=== PATIENT | female | born 1970 | race Caucasian/White ===

== ENCOUNTER 2017-11-05 12:58 | Outpatient (CLI) | payer OTHER | END 2017-11-05 12:59 | disposition home or self-care (01) | LOC: BICMAMMO 12:58 | PROVIDERS: ATTEND Obstetrics & Gynecology | DX: Z12.31 Encounter for screening mammogram for malignant neoplasm of breast (principal) | CPT/HCPCS: 77063; 77067 ==

== ENCOUNTER 2019-02-15 15:22 | Outpatient (CLI) | payer OTHER ==
--- NOTE | 2019-02-15 16:19 | MMO ---
Bilateral MAMMO Bilat Screen [facility]. CLINICAL HISTORY: Patient is 49 years old and is seen for screening. The patient has no family history of breast cancer. The patient has a history of left Excisional Biopsy in January, and right Excisional Biopsy - benign - 1991 and 2000. VIEWS: The views performed were: bilateral craniocaudal with tomosynthesis and bilateral mediolateral oblique with tomosynthesis. FILMS COMPARED: The present examination has been compared to prior imaging studies performed at [facility] on 02/06/2015, 02/10/2016, 09/29/2016 and 11/05/2017. This study has been interpreted with the assistance of computer-aided detection. MAMMOGRAM FINDINGS: The breasts are extremely dense, which may lower the sensitivity of mammography. There is an asymmetry seen in the CC view only seen in the central region of the left breast. In the right breast, there are no suspicious masses, calcifications or areas of architectural distortion. IMPRESSION: ASYMMETRY IN THE LEFT BREAST REQUIRES ADDITIONAL EVALUATION. RECOMMEND DIAGNOSTIC MAMMOGRAM. ULTRASOUND MAY ALSO PROVE USEFUL AT RECALL. THE RESULTS OF THIS EXAM WERE SENT TO THE PATIENT. ACR BI-RADS Category 0 - Incomplete: Need additional imaging evaluation. [facility] will notify the patient of the need for additional imaging services. MAMMOGRAPHY NOTE: 1. A negative mammogram report should not delay a biopsy if a dominant of clinically suspicious mass is present. 2. Approximately 10% to 15% of breast cancers are not detected by mammography. 3. Adenosis and dense breasts may obscure an underlying neoplasm. Reported by: KORINA LA MD Electonically Signed: [id number]
--- NOTE | 2019-02-15 16:23 | BD ---
EXAM: Bone densitometry using DEXA HISTORY: 49 yo female. Screening for postmenopausal osteoporosis FINDINGS: L1--bone mineral density 1.056 g/sq cm; T score 0.6 ; Z score 1.2 L2--bone mineral density 1.105 g/sq cm; T score 0.7 ; Z score 1.4 L3--bone mineral density 1.139 g/sq cm; T score 0.5 ; Z score 1.3 L4--bone mineral density 1.063 g/sq cm; T score 0.0 ; Z score 0.8 Total L1-L4--bone mineral density 1.091 g/sq cm; T score 0.4 ; Z score 1.1 Left femoral neck--bone mineral density0.896; T score 0.4 ; Z score 1.2 Total proximal left femur--bone mineral density 1.020; T score 0.6 ; Z score 1.1 IMPRESSION: Normal BMD
== END 2019-02-15 15:23 | disposition home or self-care (01) ==
LOC: BICMAMMO 15:22
PROVIDERS: ATTEND Obstetrics & Gynecology
DX: Z12.31 Encounter for screening mammogram for malignant neoplasm of breast (principal); Z13.820 Encounter for screening for osteoporosis; M81.0 Age-related osteoporosis without current pathological fracture; M85.80 Other specified disorders of bone density and structure, unspecified site; N64.89 Other specified disorders of breast; Z79.890 Hormone replacement therapy
CPT/HCPCS: 77063; 77067; 77080

== ENCOUNTER 2019-02-23 13:26 | Outpatient (CLI) | payer OTHER ==
--- NOTE | 2019-02-23 13:54 | MMO ---
Left Breast MAMMO Unilat Diag [facility]. CLINICAL HISTORY: Patient is 49 years old and is seen for additional evaluation requested at current screening. The patient has no family history of breast cancer. The patient has a history of left Excisional Biopsy in January, and right Excisional Biopsy - benign - 1991 and 2000. VIEWS: The views performed were: left craniocaudal spot compression with tomosynthesis and left mediolateral with tomosynthesis. FILMS COMPARED: The present examination has been compared to prior imaging studies performed at [facility] on 02/10/2016, 09/29/2016, 11/05/2017 and 02/15/2019. This study has been interpreted with the assistance of computer-aided detection. MAMMOGRAM FINDINGS: The breast is extremely dense, which may lower the sensitivity of mammography. The asymmetry seen at screening mammography does not persist at additional imaging, compatible with superimposed tissue. There are no suspicious masses, suspicious calcifications, or new areas of architectural distortion. IMPRESSION: THERE IS NO MAMMOGRAPHIC EVIDENCE OF MALIGNANCY. A ROUTINE FOLLOW-UP MAMMOGRAM IN 1 YEAR IS RECOMMENDED. THE RESULTS OF THIS EXAM WERE SENT TO THE PATIENT. ACR BI-RADS Category 2 - Benign finding MAMMOGRAPHY NOTE: 1. A negative mammogram report should not delay a biopsy if a dominant of clinically suspicious mass is present. 2. Approximately 10% to 15% of breast cancers are not detected by mammography. 3. Adenosis and dense breasts may obscure an underlying neoplasm. Reported by: KORINA LA MD Electonically Signed: [id number]
== END 2019-02-23 13:27 | disposition home or self-care (01) ==
LOC: BICMAMMO 13:26
PROVIDERS: ATTEND Obstetrics & Gynecology
DX: R92.2 Inconclusive mammogram (principal)
CPT/HCPCS: G0279

== ENCOUNTER 2020-01-16 09:30 | Outpatient (CLI) | payer OTHER ==
--- NOTE | 2020-01-16 10:27 | ULT ---
EXAM: US Breast Limited Rt PROVIDED CLINICAL HISTORY: Right breast palpable abnormalities COMPARISON: Concurrently performed diagnostic mammogram FINDINGS: Limited sonographic interrogation was performed of the right breast in the regions of palpable concer n. A small simple cyst is seen at the 6:00 position measuring about 4 mm. The sonographic appearance of the breast tissue in this region is otherwise normal. IMPRESSION: No concerning sonographic abnormality is evident in the regions of clinical concern. Negative imaging findings should not preclude further evaluation of a clinically suspicious finding. Patient is referred back to her clinician. BI-RADS 2 -- benign findings
--- NOTE | 2020-01-16 10:28 | ULT ---
EXAM: US Breast Limited Lt PROVIDED CLINICAL HISTORY: Left breast palpable abnormalities COMPARISON: Concurrently performed diagnostic mammogram FINDINGS: Limited sonographic interrogation was performed of the left breast in the regions of palpable concern . The sonographic appearance of the breast tissue in these regions is normal. IMPRESSION: No sonographic abnormality is evident in the regions of clinical concern. Negative imaging findings s hould not preclude further evaluation of a clinically suspicious finding. Patient is referred back to her clinician. BI-RADS 1 -- negative findings (within normal)
--- NOTE | 2020-01-16 10:29 | MMO ---
Bilateral MAMMO Bilat Diag [facility]. CLINICAL HISTORY: Patient is 49 years old and is seen for diagnostic exam and palpable abnormality in both breasts. The patient has no family history of breast cancer. The patient has a history of left Excisional Biopsy in January, and right Excisional Biopsy - benign - 1991 and 2000. VIEWS: The views performed were: bilateral craniocaudal with tomosynthesis; bilateral mediolateral oblique with tomosynthesis; and bilateral mediolateral with tomosynthesis. FILMS COMPARED: The present examination has been compared to prior imaging studies performed at [facility] on 02/15/2019, 02/23/2019 and 01/16/2020. This study has been interpreted with the assistance of computer-aided detection. MAMMOGRAM FINDINGS: The breasts are extremely dense, which may lower the sensitivity of mammography. There are no suspicious masses, suspicious calcifications, or new areas of architectural distortion. There are no concerning mammographic or sonographic abnormalities in the areas of palpable concern. The patient is referred back to her clinician. Negative imaging findings should not preclude biopsy if clinical findings are suspicious. IMPRESSION: THERE ARE NO CONCERNING MAMMOGRAPHIC OR SONOGRAPHIC ABNORMALITIES IN THE AREAS OF PALPABLE CONCERN. THE PATIENT IS REFERRED BACK TO HER CLINICIAN. NEGATIVE IMAGING FINDINGS SHOULD NOT PRECLUDE BIOPSY IF CLINICAL FINDINGS ARE SUSPICIOUS. THE RESULTS OF THIS EXAM WERE SENT TO THE PATIENT. ACR BI-RADS Category 1 - Negative MAMMOGRAPHY NOTE: 1. A negative mammogram report should not delay a biopsy if a dominant of clinically suspicious mass is present. 2. Approximately 10% to 15% of breast cancers are not detected by mammography. 3. Adenosis and dense breasts may obscure an underlying neoplasm. Reported by: KORINA LA MD Electonically Signed: [id number]
== END 2020-01-16 09:31 | disposition home or self-care (01) ==
LOC: BICMAMMO 09:30
PROVIDERS: ATTEND Nurse Practitioner Family
DX: N63.20 Unspecified lump in the left breast, unspecified quadrant (principal); N60.19 Diffuse cystic mastopathy of unspecified breast
CPT/HCPCS: 77066; G0279